=== PATIENT | male | born 1995 | race African-American/Black ===

== ENCOUNTER 2021-02-15 10:23 | Emergency (ER) | payer OTHER ==
[~2021-02-15] VITALS: Ht 182.9 cm; Wt 81.7 kg
[~2021-02-15 10:23] MED LIST: ACETAMINOPHEN325 MG PO; ATIVAN0.5 MG PO; IBUPROFEN 200200 M1 PO; PROTONIX40 M2 PO; TUMS PO
[2021-02-15] MEDS ORDERED: FLEXERIL PO (12:46)
[2021-02-15] MEDS ORDERED: HYDROCODON-ACE1 EAC7 PO (12:46)
[2021-02-15 12:50] VITALS: BP 128/66
== END 2021-02-15 13:09 | disposition home or self-care (01) ==
LOC: ER 10:23
DX: S39.92XA Unspecified injury of lower back, initial encounter (principal); X50.9XXA Other and unspecified overexertion or strenuous movements or postures, initial encounter; Y93.89 Activity, other specified; Y92.89 Other specified places as the place of occurrence of the external cause; Y99.0 Civilian activity done for income or pay